=== PATIENT | female | born 1990 | race American Indian/Alaskan Native ===

== ENCOUNTER 2024-10-09 10:56 | Emergency (ER) | payer OTHER, SELFPAY ==
[2024-10-09 10:59] VITALS: BP 128/85
[2024-10-09 11:40] VITALS: BP 136/85
[2024-10-09] MEDS: ZOFRAN 4 MG IV (11:56)
[2024-10-09 12:00] VITALS: BP 129/84
[2024-10-09] MEDS: TORADOL 30 MG IV (12:01)
[2024-10-09 12:05] LABS: Hematocrit 37.4 % (37.0-47.0); Hemoglobin 11.4 g/dL (12.0-16.0); Mean Corp Hgb Conc. 30.5 g/dL (33.0-37.0); Mean Corpuscular Volume 78.2 fL (81.0-99.0); Nucleated Red Blood Cells % 0 %; Platelet Count 261 10^3/uL (130-400); Red Cell Dist. Width 14.1 % (11.5-14.5)
[2024-10-09 12:06] LABS: Urine Character Clear (Clear)
[2024-10-09 12:13] LABS: Urine Squamous Cell 26-30 /LPF (Few)
[2024-10-09 12:17] LABS: HCG, Serum Qualitative Screen Negative
[2024-10-09 12:26] LABS: ALT (SGPT) 19 U/L (0-35); AST (SGOT) 19 U/L (14-36); Albumin 4.2 g/dl (3.5-5.0); Alkaline Phosphatase 68 U/L (38-126); Blood Urea Nitrogen 17 mg/dl (7-17); Calcium 9.5 mg/dl (8.4-10.2); Carbon Dioxide 27 mmol/L (22-30); Chloride 105 mmol/L (98-107); Glucose 88 mg/dl (70-99); Potassium 4.2 mmol/L (3.5-5.1); Sodium 137 mmol/L (135-145); Total Protein 7.4 g/dl (6.3-8.2); eGFR > 60.00
[2024-10-09 12:47] VITALS: BP 129/84
--- NOTE | 2024-10-09 13:52 | ED.GENMED ---
History of Present Illness
General
Chief Complaint: Back Pain
Time Seen by Provider: 10/09/24 11:35
History of Present Illness
History of Present Illness:
See MDM
Phy Exam
Physical Exam
Physical Exam:
See MDM
Course
Orders/Labs/Results
Orders:
Orders
10/09/24 11:42
CT Abd/pel Without Iv Or Oral Urgent
Comment:
Reason For Exam: left flank pain
Ketorolac [Toradol] 30 mg IV NOW STA
Ondansetron Injectable [Zofran] 4 mg IV NOW STA
Test Result ONCE
10/09/24 11:52
Complete Blood Count/With Diff Urgent
Comprehensive Metabolic Panel Urgent
HCG, Serum Qualitative Screen Urgent
10/09/24 11:55
Urinalysis Reflex To Culture Urgent
Date Specimen was Collected: 10/09/24
Time Specimen was Collected: 11:52
Urine Microscopic Reflex Cult Urgent
Urine Culture Urgent
FRED Source: U
Specimen Description:
Date Specimen was Collected: 10/09/24
Time Specimen was Collected: 11:52
10/09/24 13:51
Cyclobenzaprine HCl [Flexeril] 10 mg PO NOW STA
Abnormal Lab Results
10/09/24 10/09/24
11:52 11:55
Hgb 11.4 L g/dL
(12.0-16.0)
MCV 78.2 L fL
(81.0-99.0)
MCH 23.8 L pg
(27.0-31.0)
MCHC 30.5 L g/dL
(33.0-37.0)
MPV 11.5 H fL
(7.4-10.4)
Abs Immat Gran (auto) 0.1 H 10^3/uL
(0-0.05)
Ur Occult Blood Reflex 1+ A
(Negative)
Leukocyte Esterase Rfl 2+ A
(Negative)
Urine RBC 3-6 A /HPF
(0-2)
Urine Bacteria (Reflex) Moderate A
(Negative)
10/09/24 11:52
10/09/24 11:52
Vital Signs
Initial and Last Documented VS:
Initial Vital Signs
Temp Pulse Resp BP Pulse Ox
98.3 F 74 16 128/85 98
10/09/24 10:59 10/09/24 10:59 10/09/24 10:59 10/09/24 10:59 10/09/24 10:59
Last Documented Vital Signs
Temp Pulse Resp BP Pulse Ox
98.3 F 74 17 129/84 98
10/09/24 10:59 10/09/24 12:00 10/09/24 12:00 10/09/24 12:00 10/09/24 12:00
MDM/Problems Addressed
Differential Diagnosis Includes:
Note:
CHIEF COMPLAINT(S)
Back pain with associated tingling.
HISTORY OF PRESENT ILLNESS
The patient is a 34-year-old female who presents with back pain that started yesterday. Initially localized to the lower back, the pain has since ascended to the middle of the back. The patient describes significant pain with movement and reports
that the pain does not increase upon palpation. She also experienced discomfort during a tapping test, which she felt in her chest area. The patient reports past episodes of urinary tract infections (UTIs) with severe symptoms, including hematuria
and intense pain. She currently recalls experiencing blood traces and white cells found in a recent urine test, though a definitive UTI diagnosis was not confirmed. The patient denies current nausea but mentions that she stopped consuming [employer]
several weeks ago due to perceived nausea. She describes her mouth watering as if about to vomit, though she does not feel actively nauseous or gagging at present.
ADDITIONAL HISTORY OBTAINED FROM SOURCES OTHER THAN PATIENT
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
PAST MEDICAL HISTORY
History of severe urinary tract infections with significant symptoms including hematuria and pain.
REVIEW OF SYSTEMS
- Neurological: Tingling in the arm was noted but is intermittent and not a major concern.
- Gastrointestinal: Mouth watering, similar to nausea but no gagging or active vomiting.
- Genitourinary: Past urinary tract infections with hematuria, recent urine test showed blood traces and white cells.
PHYSICAL EXAM
General: Alert, no acute distress.
Skin: Warm, dry.
Head: Normocephalic, atraumatic
Neck: Appears supple, trachea midline.
Eyes, Ears, Nose, Mouth, and Throat: Oral mucosa moist.
Cardiovascular: No signs of cyanosis
Respiratory: Respirations are non-labored.
Back: Mild spasm to the left parathoracic musculature.
Abdomen: Non-distended
Musculoskeletal: No deformities
Neurological: No focal neurological deficit observed.
Psychiatric: Cooperative, appropriate mood and affect.
PLAN
- Order CT to rule out any evidence of kidney
- Conduct a urinalysis and consider further evaluation for potential kidney stones.
- Consider non-steroidal anti-inflammatory drugs (NSAIDs) and Zofran for symptomatic relief.
- Decisions on the use of antibiotics will wait pending further testing, considering the patients history of UTIs.
DIFFERENTIAL DIAGNOSIS
The Differential Diagnosis includes, in no particular order and is not limited to:
1. Muscular strain or spasm
2. Urinary tract infection
3. Kidney stones
4. Pyelonephritis
5. Intercostal neuralgia
6. Gastroesophageal reflux disease (GERD)
7. Pancreatitis
8. Spinal disc herniation
9. Costochondritis
10. Viral myositis
Disposition:
SUMMARY OF ENCOUNTER
The patient is a 34-year-old female who presented to the emergency department with back pain and tingling that began yesterday. After examination, it was determined that the pain might be due to muscle strain. A CT scan was performed and was
negative for acute pathology, but it did show free fluid, prompting a discussion regarding a possible ruptured ovarian cyst. The patient reported feeling better after receiving ketorolac (Toradol).
PLAN
Prescribe NSAIDs and muscle relaxants for symptomatic relief. Discuss with the patient the need to follow up with her primary care provider for further evaluation, particularly regarding the potential ovarian cyst.
INDEPENDENT REVIEW OF LABS AND INTERPRETATION OF TESTS
My independent review of the urinalysis indicates the presence of bacteria; however, the sample appears to be contaminated with squamous cells, suggesting that the result might not be reliable.
PATIENT EDUCATION AND COUNSELING
Discussed with the patient the current findings, including the likelihood of muscle strain and the possibility of a ruptured ovarian cyst. Advised the patient about symptom management with prescribed medications and the importance of follow-up with
her primary care provider for further evaluation.
FOLLOW-UP INSTRUCTIONS
The patient was instructed to contact her primary care provider immediately to schedule a follow-up visit for further assessment of the potential ruptured ovarian cyst and to monitor her symptoms.
MEDICATION RECONCILIATION
The patient will be prescribed NSAIDs and a muscle relaxant to manage her symptoms at home.
MEDICAL DECISION MAKING
1. Number and Complexity of Problems Addressed: Chronic conditions affecting care include a history of severe urinary tract infections. Differential diagnosis considered includes muscular strain or spasm, urinary tract infection, kidney stones,
pyelonephritis, intercostal neuralgia, gastroesophageal reflux disease (GERD), pancreatitis, spinal disc herniation, costochondritis, and viral myositis.
2. Data:
-Category 1: Tests and documents reviewed include urinalysis indicating contamination, and a CT scan showing free fluid but no acute pathology.
-Category 2: Clinical information was obtained from an independent historian.
-Category 3: Discussion of management was conducted with the patient regarding her symptoms and follow-up care.
3. Risk: Prescription medication will be managed at home, and the decision to escalate care was considered but deferred based on findings and patient comfort.
DIAGNOSIS
- Muscle strain (ICD-10: M62.830)
- Possible ruptured ovarian cyst (ICD-10: N83.20)
*Pulse Oximetry
SaO2: 98
Oxygen Mode of Delivery: Room air
Patient hypoxic: no
*Critical Care Note
Total Time (30-74mins, 75-104mins- exclusive of procedures): Not Applicable
ED Attending Note
-
Portions of this chart may have been created with voice recognition software.� Occasional wrong word or��sound alike� substitutions may have occurred due to the inherent limitations of voice recognition software.
Discharge Plan
Departure
Patient Disposition: Home (Routine Discharge)
Date of Disposition: 10/09/24
Time of Disposition: 13:52
Patient with high blood pressure during this ER visit?: No
Discharge Problem:
Muscle strain
Instructions: Upper back pain
Prescriptions:
New
diclofenac potassium 50 mg tablet
50 mg PO BID Qty: 20 0RF
metaxalone 800 mg tablet
800 mg PO TID PRN (Reason: muscle pain) Qty: 14 0RF
Referrals:
Nicol Santizo CRNP [Family Provider]
Activity Restrictions/Additional Instructions:
Please return for any worsening symptoms.
You may return at any time if you have further concerns.
Please follow up with your doctor at the first available appointment, preferably this week.
Thank you for choosing [facility].
Interventions
Interventions:
*Risk Screen - Suicide Last Done: 10/09/24 10:59
*Neglect/Abuse Screening Last Done: 10/09/24 10:59
ED-Musculoskeletal Assessment Last Done: 10/09/24 11:37
Discharge Date and Time
Print Language: MALTESE
[2024-10-09] MEDS: FLEXERIL 10 MG PO (14:05)
== END 2024-10-09 14:13 | disposition home or self-care (01) ==
LOC: EMR 10:56
PROVIDERS: EMERGENCY PHYSICIAN Student in an Organized Health Care Education/Training Program; FAMILY PHYSICIAN Nurse Practitioner
DX: M62.830 Muscle spasm of back (principal); Z87.440 Personal history of urinary (tract) infections
CPT/HCPCS: 99284; 96374; 96375; 74176; 80053; 81003; 81015; 84703; 85025; 87086